=== PATIENT | male | born 1995 | race Caucasian/White ===

== ENCOUNTER 2021-03-09 04:44 | Emergency (ER) | payer OTHER ==
[~2021-03-09] VITALS: Ht 185.4 cm; Wt 95.5 kg
[2021-03-09 04:47] VITALS: TEMP 99.9
[2021-03-09 05:20] VITALS: BP 127/71; PULSE 96
== END 2021-03-09 05:20 | disposition home or self-care (01) ==
LOC: COL.ER 04:44
DX: U07.1 COVID-19 (principal)

== ENCOUNTER 2021-03-12 20:36 | Emergency (ER) | payer OTHER ==
[~2021-03-12] VITALS: Ht 185.4 cm; Wt 90.9 kg
[2021-03-12 20:44] VITALS: TEMP 99.3
[2021-03-12 21:53] LABS: GRAN # 1.7 (1.4-6.5); GRAN % 67.1 % (42.2-75.2); HEMATOCRIT 41.4 % (42.0-52.0); HEMOGLOBIN 14.2 g/dl (13.5-18.0); LYMPH # 0.6 (1.2-3.4); LYMPH % 25.7 % (20.0-51.0); MEAN CELL VOLUME 90 fl (80.0-100.0); MEAN CORPUSCULAR HEMOGLOBIN 31 pg (27.0-31.0); MEAN CORPUSCULAR HGB CONC 34 g/dl (33.0-37.0); MEAN PLATELET VOLUME 10.4 fl (7.4-10.4); MONO # 0.2 (0.1-0.6); MONO % 6.8 % (1.7-9.3); PLATELET COUNT 109 K/mm3 (130-400); REDCELL DISTRIBUTION WIDTH-CV 12.4 % (11.5-14.5)
[2021-03-12 21:55] LABS: ALANINE AMINOTRANSFERASE 91 U/L (4-49); ALBUMIN 3.7 gm/dL (3.5-5.0); ALKALINE PHOSPHATASE 67 U/L (50-136); ANION GAP 6 mmol/L (7-16); AST,SGOT 133 U/L (15-37); BILIRUBIN,TOTAL 0.3 mg/dL (0.0-1.0); BLOOD UREA NITROGEN 10 mg/dL (9-20); CARBON DIOXIDE 28 mmol/L (22-30); CHLORIDE 104 mmol/L (98-107); CREATININE, serum 0.93 (0.66-1.25); GLUCOSE 101 mg/dL (74-106); SODIUM 137 mmol/L (137-145); TOTAL PROTEIN 6.9 gm/dL (6.4-8.2)
[2021-03-12 22:12] LABS: TROPONIN-I < 0.012 ng/mL (0.000-0.035)
[2021-03-13 00:30] VITALS: BP 131/77; PULSE 73
== END 2021-03-13 00:29 | disposition home or self-care (01) ==
LOC: COL.ER 20:36
PROVIDERS: Nurse Practitioner Primary Care
DX: U07.1 COVID-19 (principal)
CPT/HCPCS: J1100; J2405; J7030; Q9967